=== PATIENT | female | born 1945 | race Caucasian/White ===

== ENCOUNTER 2022-08-07 16:11 | Emergency (ER) | payer OTHER ==
[~2022-08-07] VITALS: Ht 167.6 cm; Wt 73.0 kg
[2022-08-07] MEDS ORDERED: HYDROCODONE/ACETAMINOPHEN 5/325MG TABLET PO STA (18:28)
[2022-08-07] MEDS ORDERED: OLANZAPINE 10 MG/VIAL IM ONE (19:30)
[2022-08-07 20:04] LABS: BASOPHILS % 0.1 % (0.0-2.0); EOSINOPHILS % 0.4 % (0.0-5.0); HEMATOCRIT. 36.7 % (36.0-48.0); HEMOGLOBIN. 12.4 g/dL (12.0-16.0); LYMPHOCYTES % 7.1 % (20.0-50.0); MEAN CORPUSCULAR HEMOGLOBIN 30.9 pg (28.0-32.0); MEAN CORPUSCULAR VOLUME 91.8 fL (81.0-99.0); MEAN PLATELET VOLUME 8.6 fl (7.4-10.4); MONOCYTES % 5.1 % (2.0-8.0); NEUTROPHILS % 87.3 % (40.0-76.0); PLATELET 378 x1000/uL (130-400)
[2022-08-07 20:13] LABS: CHLORIDE 107 mEq/L (98-107); PROTHROMBIN TIME 11.2 sec (9.6-11.0)
[2022-08-07] MEDS ORDERED: HYDROCODONE/ACETAMINOPHEN 5/325MG TABLET PO NR (21:00)
[2022-08-07] MEDS ORDERED: PIPERACILLIN/TAZOBACTAM 3.375GM/50ML PREMIX IV NR (21:30)
[2022-08-07] MEDS ORDERED: CLONIDINE 0.1MG TABLET PO NR (23:15)
[2022-08-08] MEDS ORDERED: OLANZAPINE 5MG TABLET PO SCH (01:00)
[2022-08-08] MEDS ORDERED: DIPHENHYDRAMINE 50MG/ML VIAL IV NR (01:15)
[2022-08-08] MEDS ORDERED: CEPH500C2 MT (02:06)
[2022-08-08] MEDS ORDERED: TOPUD MT (02:06)
[2022-08-08 03:20] VITALS: BP 118/78
== END 2022-08-08 03:40 | disposition home or self-care (01) ==
LOC: ER 16:11
DX: R41.82 Altered mental status, unspecified (principal); R51.9 Headache, unspecified
CPT/HCPCS: 36415; 70450; 71045; 73030; 80053; 83605; 85025; 85610; 87040; 96365; 96372; 96375; 99285; C1893; J1200; J2543; J3490; A4565